=== PATIENT | male | born 1940 | race Caucasian/White ===

== ENCOUNTER → 2016-07-22 | Outpatient (CLI) | payer MEDICARE, BC ==
[~2016-07-22] VITALS: Ht 177.8 cm; Wt 90.0 kg
[~2016-07-22] MED LIST: ADVIL200 MG PO; CALCIUM 600-D 61 TAB PO; CALCIUM 600600 M2 PO; CASODEX 50MG TA50 MG PO; CLARITIN 1010 MG/TAB PO; FLONASE NASAL S16 GM NS; GLUCOSAMINE 1000 PO; LUPRON DEPOT11.25 M3 IM; NASONEX SPRAY17 GM NS; NATURAL IRON65 MG PO; PRINIVIL20 MG PO; PROBIOTICA100 Milli1 PO; PROLIA60 MG/ML SC; SYNTHROID0.112 MG/T PO; ULTRAM 50MG TAB50 MG PO; VITAMIN B122500 MCG SL
[2016-07-22 12:07] VITALS: BP 161/73; PULSE 70
[2016-07-22 14:03] VITALS: BP 163/84; PULSE 71
== END ==
LOC: COL.RAD 11:45
DX: M54.5 Low back pain (principal)
CPT/HCPCS: J3301

== ENCOUNTER → 2016-11-29 | Outpatient (CLI) | payer MEDICARE, BC ==
[~2016-11-29] VITALS: Ht 177.8 cm; Wt 92.3 kg
[2016-11-29 07:10] VITALS: BP 185/80; PULSE 73
[2016-11-29 09:30] VITALS: BP 170/78; PULSE 62
== END ==
LOC: COL.RAD 06:51
DX: M54.5 Low back pain (principal)
CPT/HCPCS: J3301

== ENCOUNTER → 2017-05-21 | Outpatient (CLI) | payer MEDICARE, BC ==
[~2017-05-21] VITALS: Ht 177.8 cm; Wt 88.5 kg
[~2017-05-21] MED LIST changes: +COLACE 100100 MG/CAP PO; +NORCO 325 MG-7.1 TAB PO
[2017-05-21 13:20] VITALS: BP 158/78; PULSE 73
[2017-05-21 14:15] VITALS: BP 164/76; PULSE 71
== END ==
LOC: COL.RAD 12:30
DX: M48.061 Spinal stenosis, lumbar region without neurogenic claudication (principal); M54.5 Low back pain
CPT/HCPCS: J3301

== ENCOUNTER → 2017-11-10 | Outpatient (CLI) | payer MEDICARE, BC ==
[~2017-11-10] VITALS: Ht 177.8 cm; Wt 90.5 kg
[~2017-11-10] MED LIST changes: +LEVOXYL0.075 MG PO
[2017-11-10 09:58] VITALS: BP 176/82; PULSE 76
[2017-11-10 10:40] VITALS: BP 170/78; PULSE 69
== END ==
LOC: COL.RAD 09:25
DX: M46.86 Other specified inflammatory spondylopathies, lumbar region (principal); M48.061 Spinal stenosis, lumbar region without neurogenic claudication
CPT/HCPCS: J3301

== ENCOUNTER → 2018-02-10 | Outpatient (CLI) | payer MEDICARE, BC | LOC: MHCPAIN 08:13 | DX: G89.29 Other chronic pain (principal); M47.817 Spondylosis without myelopathy or radiculopathy, lumbosacral region; M53.3 Sacrococcygeal disorders, not elsewhere classified; M48.061 Spinal stenosis, lumbar region without neurogenic claudication | CPT/HCPCS: G0463 ==

== ENCOUNTER → 2018-02-16 | Outpatient (CLI) | payer MEDICARE, BC | LOC: MHCPAIN 08:40 | DX: M47.817 Spondylosis without myelopathy or radiculopathy, lumbosacral region (principal); M54.16 Radiculopathy, lumbar region ==

== ENCOUNTER → 2018-02-24 | Outpatient (CLI) | payer MEDICARE, BC | LOC: MHCPAIN 10:52 | DX: G89.29 Other chronic pain (principal); M47.817 Spondylosis without myelopathy or radiculopathy, lumbosacral region; M54.16 Radiculopathy, lumbar region; M53.3 Sacrococcygeal disorders, not elsewhere classified; M48.061 Spinal stenosis, lumbar region without neurogenic claudication | CPT/HCPCS: G0463 ==

== ENCOUNTER → 2018-02-26 | Outpatient (CLI) | payer MEDICARE, BC | LOC: MHCPAIN 09:44 | DX: M47.817 Spondylosis without myelopathy or radiculopathy, lumbosacral region (principal); M54.16 Radiculopathy, lumbar region ==

== ENCOUNTER → 2018-03-04 | Outpatient (CLI) | payer MEDICARE, BC | LOC: MHCPAIN 14:54 | DX: G89.29 Other chronic pain (principal); M47.817 Spondylosis without myelopathy or radiculopathy, lumbosacral region; M54.16 Radiculopathy, lumbar region; M53.3 Sacrococcygeal disorders, not elsewhere classified; M48.061 Spinal stenosis, lumbar region without neurogenic claudication | CPT/HCPCS: G0463 ==

== ENCOUNTER → 2018-03-16 | Outpatient (CLI) | payer MEDICARE, BC | LOC: MHCPAIN 13:44 | DX: M47.817 Spondylosis without myelopathy or radiculopathy, lumbosacral region (principal); M54.16 Radiculopathy, lumbar region | CPT/HCPCS: J1100; J2250; J3010 ==

== ENCOUNTER → 2018-04-02 | Outpatient (CLI) | payer MEDICARE, BC | LOC: MHCPAIN 07:26 | DX: M47.817 Spondylosis without myelopathy or radiculopathy, lumbosacral region (principal); M54.16 Radiculopathy, lumbar region | CPT/HCPCS: J1100; J2250; J3010 ==

== ENCOUNTER → 2018-06-01 | Outpatient (CLI) | payer MEDICARE, BC | LOC: MHCPAIN 09:32 | DX: M47.817 Spondylosis without myelopathy or radiculopathy, lumbosacral region (principal); M54.16 Radiculopathy, lumbar region; M53.3 Sacrococcygeal disorders, not elsewhere classified; M48.061 Spinal stenosis, lumbar region without neurogenic claudication | CPT/HCPCS: G0463 ==

== ENCOUNTER → 2018-09-28 | Outpatient (CLI) | payer MEDICARE, BC | LOC: MHCPAIN 08:44 | DX: G89.29 Other chronic pain (principal); M47.817 Spondylosis without myelopathy or radiculopathy, lumbosacral region; M53.3 Sacrococcygeal disorders, not elsewhere classified; M48.061 Spinal stenosis, lumbar region without neurogenic claudication | CPT/HCPCS: G0463 ==

== ENCOUNTER → 2018-11-05 | Outpatient (CLI) | payer MEDICARE, BC | LOC: COL.VAS 12:20 | DX: I77.89 Other specified disorders of arteries and arterioles (principal); R60.0 Localized edema; I10 Essential (primary) hypertension ==

== ENCOUNTER → 2019-05-05 | Outpatient (CLI) | payer MEDICARE, BC | LOC: MHCPAIN 10:03 | DX: M47.817 Spondylosis without myelopathy or radiculopathy, lumbosacral region (principal); M53.3 Sacrococcygeal disorders, not elsewhere classified | CPT/HCPCS: G0463 ==

== ENCOUNTER → 2019-05-20 | Outpatient (CLI) | payer MEDICARE, BC | LOC: MHCPAIN 08:10 | DX: M43.16 Spondylolisthesis, lumbar region (principal); M54.5 Low back pain ==

== ENCOUNTER → 2019-06-17 | Outpatient (CLI) | payer MEDICARE, BC | LOC: MHCPAIN 07:35 | DX: M47.817 Spondylosis without myelopathy or radiculopathy, lumbosacral region (principal); M43.16 Spondylolisthesis, lumbar region; G47.33 Obstructive sleep apnea (adult) (pediatric); M81.0 Age-related osteoporosis without current pathological fracture | CPT/HCPCS: G0463; J1100; J2250; J2310; J3010 ==

== ENCOUNTER → 2019-06-21 | Outpatient (CLI) | payer MEDICARE, BC | LOC: MHCPAIN 11:20 | DX: M43.16 Spondylolisthesis, lumbar region (principal) | CPT/HCPCS: J1100; J2250; J3010 ==

== ENCOUNTER → 2019-11-05 | Outpatient (CLI) | payer MEDICARE, BC | LOC: COL.RAD 09:14 | DX: C61 Malignant neoplasm of prostate (principal) | CPT/HCPCS: A9503 ==

== ENCOUNTER → 2019-12-01 | Outpatient (CLI) | payer MEDICARE, BC | LOC: MHCPAIN 09:53 | DX: M47.818 Spondylosis without myelopathy or radiculopathy, sacral and sacrococcygeal region (principal); M53.3 Sacrococcygeal disorders, not elsewhere classified; M54.16 Radiculopathy, lumbar region; G89.29 Other chronic pain | CPT/HCPCS: G0463 ==

== ENCOUNTER → 2019-12-02 | Outpatient (CLI) | payer MEDICARE, BC | LOC: MHCPAIN 10:04 | DX: M47.816 Spondylosis without myelopathy or radiculopathy, lumbar region (principal); M54.16 Radiculopathy, lumbar region | CPT/HCPCS: J1100; Q9967 ==

== ENCOUNTER 2020-04-27 12:17 | Emergency (ER) | payer MEDICARE, BC ==
[2020-04-27 12:19] VITALS: TEMP 97.6
[2020-04-27 13:08] LABS: BASO % 0.4 % (0.0-2.0); EOS # 0.1 (0.0-0.7); GRAN # 5.3 (1.4-6.5); GRAN % 74.8 % (42.2-75.2); HEMOGLOBIN 12.2 g/dl (13.5-18.0); LYMPH # 1.1 (1.2-3.4); MEAN CELL VOLUME 93 fl (80.0-100.0); MEAN CORPUSCULAR HEMOGLOBIN 32 pg (27.0-31.0); MEAN CORPUSCULAR HGB CONC 35 g/dl (33.0-37.0); MEAN PLATELET VOLUME 9.2 fl (7.4-10.4); MONO # 0.6 (0.1-0.6); MONO % 8.1 % (1.7-9.3); PLATELET COUNT 208 K/mm3 (130-400); RED BLOOD COUNT 3.77 M/mm3 (4.20-5.60); REDCELL DISTRIBUTION WIDTH-CV 12.9 % (11.5-14.5)
[2020-04-27 13:25] LABS: ALANINE AMINOTRANSFERASE 14 U/L (4-49); ALKALINE PHOSPHATASE 132 U/L (50-136); ANION GAP 8 mmol/L (7-16); AST,SGOT 22 U/L (15-37); BILIRUBIN,TOTAL 0.5 mg/dL (0.0-1.0); BLOOD UREA NITROGEN 27 mg/dL (9-20); CALCIUM 9.2 mg/dL (8.4-10.2); CARBON DIOXIDE 26 mmol/L (22-30); CHLORIDE 99 mmol/L (98-107); CREATININE, serum 1.26 (0.66-1.25); GLUCOSE 109 mg/dL (74-106); POTASSIUM 4.3 mmol/L (3.4-5.0); SODIUM 134 mmol/L (137-145)
[2020-04-27 13:35] LABS: HEMATOCRIT 34.9 % (42.0-52.0)
[2020-04-27 13:39] LABS: TROPONIN-I < 0.012 ng/mL (0.000-0.035)
[2020-04-27 17:10] VITALS: BP 187/72; PULSE 73
== END 2020-04-27 17:10 | disposition home or self-care (01) ==
LOC: COL.ER 12:17
PROVIDERS: Emergency Medicine
DX: S01.81XA Laceration without foreign body of other part of head, initial encounter (principal); R55 Syncope and collapse; Z20.822 Contact with and (suspected) exposure to COVID-19; Z87.891 Personal history of nicotine dependence
CPT/HCPCS: J7030

== ENCOUNTER → 2021-02-28 | Outpatient (CLI) | payer MEDICARE, BC | LOC: COL.RAD 10:03 | DX: N28.1 Cyst of kidney, acquired (principal) ==

== ENCOUNTER → 2021-06-14 | Outpatient (CLI) | payer MEDICARE, BC | LOC: COL.RAD 11:46 | DX: N13.39 Other hydronephrosis (principal) | CPT/HCPCS: A9562; J1940 ==

== ENCOUNTER 2021-08-22 08:16 | Day surgery (SDC) | payer MEDICARE, BC ==
[~2021-08-22] VITALS: Ht 177.8 cm; Wt 90.6 kg
[2021-08-22] MEDS ORDERED: VITAMIN D31000 I1 PO (08:49)
[2021-08-22] MEDS ORDERED: VITRON-C PO (08:50)
[2021-08-22] MEDS ORDERED: PRINIVIL40 MG PO (08:51)
[2021-08-22] MEDS ORDERED: PREDNISONE10 MG PO (08:52)
[2021-08-22] MEDS ORDERED: NORCO 325 MG-51 TAB PO ×2 (08:52→10:34)
[2021-08-22] MEDS ORDERED: NORVASC2.5 MG PO (08:53)
[2021-08-22 09:27] VITALS: BP 149/62; PULSE 72; TEMP 97.1
[2021-08-22] MEDS ORDERED: NORCO 325 MG-101 TAB PO (11:55)
[2021-08-22 12:10] VITALS: BP 135/65; PULSE 74; TEMP 97.2
--- NOTE | 2021-08-22 12:10 | NUR ---
The patient arrived back to [facility] from the recovery room at this time. The patient reports minimal pain and no nausea at this time. Post operative vital signs were started at this time. The patient has some water from the recovery room that he has been drinking and tolerating well. He denies wanting anything further at this time. The patient's was brought back to be at his bedside and is tearful and worried about him. She verbalizes being nervous about caring for the catheter and whether she would be instructed on the care prior to discharge. The nurse assured the patient and his that they would both be instructed on how to care for the catheter prior to discharge.
[2021-08-22 12:25] VITALS: BP 129/51; PULSE 73
--- NOTE | 2021-08-22 12:25 | NUR ---
The patient agrees to try some apple juice and vanilla pudding at this time. The patient's appears to have calmed down and is sitting at the patient's bedside. Vital signs appear stable. The patient's catheter is secured to his right leg and draining pink colored urine. Call light is within reach.
[2021-08-22 12:40] VITALS: BP 147/53; PULSE 75
--- NOTE | 2021-08-22 12:40 | NUR ---
The patient appears to be tolerating the food and drink well. He reports feeling the urge to void and it was discussed that having the catheter in place can cause that sensation.
[2021-08-22 12:55] VITALS: BP 125/48; PULSE 75
--- NOTE | 2021-08-22 13:05 | NUR ---
Discharge instructions were reviewed with the patient and his at this time. They both verbalized understanding and have no questions for the nurse at this time. Catheter teaching was performed with the patient and his . They were taught how to empty the dependent drainage bag, how to use the stat lock and how to hang the dependent bag with the hook attached. The nurse also reviewed how to switch between a leg bag and dependent drainage bag. The nurse sent the patient with a pamphlet on how to care for a maza catheter at home including how to clean the bag.
[2021-08-22 13:28] VITALS: BP 135/65; PULSE 73
--- NOTE | 2021-08-22 13:30 | NUR ---
The patient's is assisting him to get dressed at this time. They reported that the patient is having a moderate amount of drainage from his penis. The nurse educated that the bleeding probably occurred due to the attempt to complete a cystoscopy that was unsuccessful. They agreed that this made sense and are going to monitor the bleeding at home and notify the doctor if it increases or does not stop.
--- NOTE | 2021-08-22 13:45 | NUR ---
The patient was escorted out via wheelchair to a private vehicle by ORLANDO Mancilla. The patient's belongings and discharge paperwork were sent with him. The patient's has the extra catheter supplies that were sent with the patient.
== END 2021-08-22 13:45 | disposition home or self-care (01) ==
LOC: SDCO 08:16
DX: C61 Malignant neoplasm of prostate (principal); N13.1 Hydronephrosis with ureteral stricture, not elsewhere classified; N31.8 Other neuromuscular dysfunction of bladder; R35.0 Frequency of micturition; R39.12 Poor urinary stream; G47.33 Obstructive sleep apnea (adult) (pediatric); I10 Essential (primary) hypertension; Z99.89 Dependence on other enabling machines and devices; Z79.899 Other long term (current) drug therapy; Z87.891 Personal history of nicotine dependence
CPT/HCPCS: C1769; J1100; J1170; J2405; J2704; J3010; J7120; Q9967